=== PATIENT | female | born 1980 | race Caucasian/White ===

== ENCOUNTER → 2016-12-23 | Outpatient (CLI) | payer MEDICAID ==
[~2016-12-23] MED LIST: CEPHALEXIN500 MG PO; NOMEDS; PHENERGAN 25MG.25 M1 PO; PRENATAL1 TAB PO; SUBUTEX8 MG OR; ZANTAC 150150 MG PO; ZOFRAN ODT8 MG PO
== END ==
LOC: LAB 17:58
DX: N39.0 Urinary tract infection, site not specified (principal)